=== PATIENT | male | born 1955 | race Caucasian/White ===

== ENCOUNTER 2018-08-04 13:07 | Emergency (ER) | payer OTHER, SELFPAY ==
[2018-08-04 13:09] VITALS: BP 136/77; PULSE 64; RESP 18; TEMP 36.3; O2SAT 100
--- NOTE | 2018-08-04 13:18 | DI.RAD_ITS ---
SYMPTOM/DIAGNOSIS: SAW INJURY, PAIN RIGHT THUMB: Soft tissue trauma is noted over the tip of the thumb. There is no evidence of a fracture or dislocation.
--- NOTE | 2018-08-04 13:18 | W.ED.GENAD ---
Discharge Plan Disposition Patient Disposition: HOME Condition: Stable Discharge Details Chief Complaint: Laceration Clinical Impression: Laceration of thumb, right Primary Care Provider: Zachary Hernandez ED Provider: Kendall Quintero Home Meds and New Rx's Prescriptions: New cephalexin 500 mg capsule 500 mg PO TID 5 Days Qty: 15 RF: 0 No Action glucosamine sulfate 2KCl 1,000 MG tablet 1,000 mg PO DAILY RF: 0 trazodone 50 mg tablet 50 mg PO HS Qty: 90 RF: 4 naproxen sodium [Aleve] 220 mg tablet 220 mg PO DAILY PRNRF: 0 Discharge Instructions Instructions: Laceration (ED) Additional Instructions: Return in 7 to 10 days for suture removal. Take antibiotics as prescribed. Return sooner if you develop fever, redness, discharge from the wound. Once daily soap and water cleanse, pat dry, replace dressing. Medical Decision Making 63-year-old male presents with right thumb distal laceration from a skill saw. Anesthetized, irrigated, referred for x-ray to rule out underlying bony injury. The x-ray is unremarkable. Tetanus status is up-to-date 2015. Wound examined in a bloodless field without evidence of foreign body. 5 4-0 Nylon sutures used to close the wound. I will place him on a brief course of antibiotics to ensure no development of infection. HPI General Mode of arrival: ambulatory. Date/Time Provider Initiated Documentation: 08/04/18 13:10. Limitations to Documentation: no limitations. Information obtained by: patient. History of Present Illness 63 year old M presents to the emergency department with the chief complaint of Right thumb laceration from Skil saw, described as moderate, Quality is described as dull and constant, and is localized to the right and upper extremity. Patient reports no radiation. Patient started experiencing this hour(s) and it has been constant. No relieving factors improve symptom(s), No exacerbating factors reported . Patient notes no other symptoms. and other (No numbness or weakness); denies weakness. Related Data Home Medications Medication Instructions Recorded Confirmed glucosamine sulfate 2KCl 1,000 mg PO DAILY 07/06/12 08/04/18 trazodone 50 mg tablet 50 mg PO HS #90 tab 02/16/18 08/04/18 naproxen sodium 220 mg tablet 220 mg PO DAILY PRN tab 03/24/18 08/04/18 cephalexin 500 mg PO TID 5 Days #15 cap 08/04/18 Previous Rx's Medication Instructions Recorded trazodone 50 mg tablet 50 mg PO HS #90 tab 02/16/18 cephalexin 500 mg PO TID 5 Days #15 cap 08/04/18 Allergies Allergy/AdvReac Type Severity Reaction Status Date / Time codeine AdvReac Mild GI UPSET Verified 08/04/18 13:11 General Stated Complaint: Laceration MAME: 4 Review of Systems Review of Systems 4 systems reviewed and otherwise - [facility] Surgical History Appendectomy Colonoscopy - MAC (~04/2010) PROCEDURES Tonsillectomy Family History Mother Essential hypertension Hyperlipidemia Father Heart disease Maternal Grandfather Heart disease Maternal Grandmother Diabetes Neoplasm Paternal Grandfather Heart disease Paternal Grandmother No problems noted. Social History Smoking/Tobacco Use Status: Former Tobacco Use Quit Date: 02/22/77 Alcohol Intake: current Alcohol Intake frequency: holidays/special occasions only Alcohol type: beer Substance use type: does not use Household members: other Details: 2 current occupation: [employer] Pets and animals: Yes Pets and animals: cat(s) Duration: 45-60 minutes/day Frequency: does not exercise Joceline/Jainism: Mandaen Special joceline needs: No Do you feel safe at home: Yes Do you feel safe in your relationship?: Yes Exam Narrative Exam Narrative: GEN: awake, alert, oriented 3. Pleasant, well groomed, interactive. HEAD: Normocephalic, atraumatic ENT: Mucous membranes moist, oropharynx unremarkable, External ear exam unremarkable EYES: PERRL, EOMI NECK: Full ROM, no ELIZABETH, no menigismus EXT: Full ROM, the right thumb distal portion has a vertically oriented 2 cm incision that goes just to the distal nail. Sensation is intact with a two-point discrimination of approximately 1 cm. Neuro: Grossly normal neurologic exam, conversant, interactive. Psych: Speech fluent, thoughts congruent, affect normal Course Vital Signs Temperature 36.3 C L 08/04/18 13:09 Pulse 64 08/04/18 13:09 Respiratory Rate 18 08/04/18 13:09 Blood Pressure 136/77 08/04/18 13:09 Pulse Oximetry 100 08/04/18 13:09 Temperature 36.3 C L 08/04/18 13:09 Temperature Source Skin 08/04/18 13:09 Pulse 64 08/04/18 13:09 Respiratory Rate 18 08/04/18 13:09 Respiratory Effort 08/04/18 13:12 Blood Pressure 136/77 08/04/18 13:09 Pulse Oximetry 100 08/04/18 13:09 Oxygen Delivery Method Room Air 08/04/18 13:09 Oxygen Flow Rate 0 08/04/18 13:09 Pain Level 5 08/04/18 13:09 Procedures Laceration Laceration 1: Side (If applicable): right Size (cm): 2 Description: linear and irregular Local Anesthetic: Lidocaine 1% Amount of anesthesia used (mL): 1 Skin layer closed with: nylon Size (cm): 4-0 Number of sutures: 5 Technique: simple, interrupted
--- NOTE | 2018-08-04 13:21 | ED.GENADUL_ITS ---
Discharge Plan Disposition Patient Disposition: HOME Condition: Stable Discharge Details Chief Complaint: Laceration Clinical Impression: Laceration of thumb, right Primary Care Provider: Zachary Hernandez ED Provider: Kendall Quintero Home Meds and New Rx's Prescriptions: New cephalexin 500 mg capsule 500 mg PO TID 5 Days Qty: 15 RF: 0 No Action glucosamine sulfate 2KCl 1,000 MG tablet 1,000 mg PO DAILY RF: 0 trazodone 50 mg tablet 50 mg PO HS Qty: 90 RF: 4 naproxen sodium [Aleve] 220 mg tablet 220 mg PO DAILY PRNRF: 0 Discharge Instructions Instructions: Laceration (ED) Additional Instructions: Return in 7 to 10 days for suture removal. Take antibiotics as prescribed. Return sooner if you develop fever, redness, discharge from the wound. Once daily soap and water cleanse, pat dry, replace dressing. Medical Decision Making 63-year-old male presents with right thumb distal laceration from a skill saw. Anesthetized, irrigated, referred for x-ray to rule out underlying bony injury. The x-ray is unremarkable. Tetanus status is up-to-date 2015. Wound examined in a bloodless field without evidence of foreign body. 5 4-0 Nylon sutures used to close the wound. I will place him on a brief course of antibiotics to ensure no development of infection. HPI General Mode of arrival: ambulatory . Date/Time Provider Initiated Documentation: 08/04/18 13:10 . Limitations to Documentation: no limitations . Information obtained by: patient . History of Present Illness 63 year old M presents to the emergency department with the chief complaint of Right thumb laceration from Skil saw, described as moderate, Quality is described as dull and constant, and is localized to the right and upper extremity. Patient reports no radiation. Patient started experiencing this hour(s) and it has been constant. No relieving factors improve symptom(s), No exacerbating factors reported . Patient notes no other symptoms. and other (No numbness or weakness); denies weakness. Related Data Home Medications Medication Instructions Recorded Confirmed glucosamine sulfate 2KCl 1,000 mg PO DAILY 07/06/12 08/04/18 trazodone 50 mg tablet 50 mg PO HS #90 tab 02/16/18 08/04/18 naproxen sodium 220 mg tablet 220 mg PO DAILY PRN tab 03/24/18 08/04/18 cephalexin 500 mg PO TID 5 Days #15 cap 08/04/18 Previous Rx's Medication Instructions Recorded trazodone 50 mg tablet 50 mg PO HS #90 tab 02/16/18 cephalexin 500 mg PO TID 5 Days #15 cap 08/04/18 Allergies Allergy/AdvReac Type Severity Reaction Status Date / Time codeine AdvReac Mild GI UPSET Verified 08/04/18 13:11 General Stated Complaint: Laceration MAME: 4 Review of Systems Review of Systems 4 systems reviewed and otherwise - [facility] Surgical History Appendectomy Colonoscopy - MAC (~04/2010) PROCEDURES Tonsillectomy Family History Mother Essential hypertension Hyperlipidemia Father Heart disease Maternal Grandfather Heart disease Maternal Grandmother Diabetes Neoplasm Paternal Grandfather Heart disease Paternal Grandmother No problems noted. Social History Smoking/Tobacco Use Status: Former Tobacco Use Quit Date: 02/22/77 Alcohol Intake: current Alcohol Intake frequency: holidays/special occasions only Alcohol type: beer Substance use type: does not use Household members: other Details: 2 current occupation: [employer] Pets and animals: Yes Pets and animals: cat(s) Duration: 45-60 minutes/day Frequency: does not exercise Joceline/Anabaptist: Pentecostal Special joceline needs: No Do you feel safe at home: Yes Do you feel safe in your relationship?: Yes Exam Narrative Exam Narrative: GEN: awake, alert, oriented 3. Pleasant, well groomed, interactive. HEAD: Normocephalic, atraumatic ENT: Mucous membranes moist, oropharynx unremarkable, External ear exam unremarkable EYES: PERRL, EOMI NECK: Full ROM, no ELIZABETH, no menigismus EXT: Full ROM, the right thumb distal portion has a vertically oriented 2 cm incision that goes just to the distal nail. Sensation is intact with a two- point discrimination of approximately 1 cm. Neuro: Grossly normal neurologic exam, conversant, interactive. Psych: Speech fluent, thoughts congruent, affect normal Course Vital Signs Temperature 36.3 C L 08/04/18 13:09 Pulse 64 08/04/18 13:09 Respiratory Rate 18 08/04/18 13:09 Blood Pressure 136/77 08/04/18 13:09 Pulse Oximetry 100 08/04/18 13:09 Temperature 36.3 C L 08/04/18 13:09 Temperature Source Skin 08/04/18 13:09 Pulse 64 08/04/18 13:09 Respiratory Rate 18 08/04/18 13:09 Respiratory Effort 08/04/18 13:12 Blood Pressure 136/77 08/04/18 13:09 Pulse Oximetry 100 08/04/18 13:09 Oxygen Delivery Method Room Air 08/04/18 13:09 Oxygen Flow Rate 0 08/04/18 13:09 Pain Level 5 08/04/18 13:09 Procedures Laceration Laceration 1: Side (If applicable): right Size (cm): 2 Description: linear and irregular Local Anesthetic: Lidocaine 1% Amount of anesthesia used (mL): 1 Skin layer closed with: nylon Size (cm): 4-0 Number of sutures: 5 Technique: simple, interrupted
== END 2018-08-04 14:00 | disposition home or self-care (01) ==
PROVIDERS: Emergency Provider Emergency Medicine; PCP Emergency Medicine
DX: S61.011A Laceration without foreign body of right thumb without damage to nail, initial encounter (principal); W31.2XXA Contact with powered woodworking and forming machines, initial encounter
CPT/HCPCS: 12001; 99283; 73140; 99282

== ENCOUNTER 2019-01-30 09:09 | Outpatient (CLI) | payer OTHER, SELFPAY ==
[2019-02-01 11:30] LABS: PSA, Screening 1.4 ng/mL (0.0-4.5)
== END 2019-01-30 09:29 ==
PROVIDERS: PCP Emergency Medicine; Visit Provider Emergency Medicine
DX: Z12.5 Encounter for screening for malignant neoplasm of prostate (principal)
CPT/HCPCS: 36415; 84153

== ENCOUNTER → 2020-01-11 01:18 | Outpatient (CLI) | payer OTHER, SELFPAY ==
--- NOTE | 2020-01-11 09:00 | ETT_ITS ---
APPROVED REPORT Exam: Exercise Treadmill Patient Location: Out-Patient Room/Bed: Stress Nurse: Hansa Barba RN BMI: 29.53 Baseline Rhythm: Sinus Rhythm Comment: mild ST elevation noted in leads II, III, aVF, V2, V3, V4, V5, V6 Indications: Episode of sternal chest pain. Medical History Medical History: GERD. Insomnia. Cardiac Medications: None. , Allergies: Codeine. Cardiac Risk Factors: FHX of CAD, Smoking (former) Previous Cardiac Procedures: None. Pretest Chest Pain Characteristics: No chest pain Exercise History: Indeterminate Physical Disabilities: None. Lung Sounds: Clear to auscultation Heart Sounds: Regular Stress Test Details Test: Exercise stress testing was performed using a Erick protocol. Rest Stress HR Resting HR Supine: 74 bpm Max Heart Rate (APMHR): 156 bpm Resting HR Standin bpm Target HR (85% APMHR): 132 bpm Max HR Achieved: 156 bpm % of APMHR: 100 Recovery HR: 86 bpm HR response to stress: Normal HR response to stress BP Resting BP Supine: 126/70 mmHg Resting BP Standin/72 mmHg Max BP: 148/72 mmHg Recovery BP: 130/70 mmHg BP response to stress: Normal blood pressure response to stress. ECG Resting ECG: Sinus Rhythm Ectopy: None. Comment: mild ST elevation noted in leads II, III, aVF, V2, V3, V4, V5, V6 Stress ECG: Sinus Tachycardia ST Change: ST segment more isoelectric during exercise. Arrhythmia: None. Recovery ECG: Sinus Rhythm Recovery ST Change: No significant ST segment changes noted. Recovery ST Deviation: 0 mm Recovery Arrhythmia: None. Clinical Reason for Termination: Equipment malfunction. Stress Symptoms: General Fatigue Exercise duration: 12 min26 sec Highest Stage Reached: Stage 5: 5.0 mph at 18% grade. Exercise capacity: 13.77 METs Stress ECG Conclusion 1. The resting electrocardiogram was normal 2. Patient exercised on the Erick protocol and completed a workload of 13.77 METS. There were no sym ptoms to suggest angina 3. Normal heart rate and blood pressure response to exercise. The patient achieved 100% of predicted heart rate for age 4. Echocardiographically there was no evidence of myocardial ischemia 5. There were no significant dysrhythmias 6. Jordan treadmill score is 12, low risk Stress Test Summary STAGE Time (mins) Speed (mph) Grade (%) HR BP SYMPTOMS METS Supine 74 120/70 Standing 73 120/72 1 3 1.7 10 100 126/68 4.6 2 6 2.5 12 115 130/70 7 3 9 3.4 14 135 138/66 10.2 4 12 4.2 16 152 12.9 3 min recovery 89 148/72 6 min recovery 86 130/70 Equipment failure occurred during exercise. We were unable to continue to monitor HR and rhythm and b ecause of this the RN decided to terminate the study. Rhythm detection was returned 2 minutes after c essation of exercise. Patient was asymptomatic throughout exercise and recovery period.
== END ==
PROVIDERS: PCP Emergency Medicine; Visit Provider Emergency Medicine
DX: R07.9 Chest pain, unspecified (principal); Z82.49 Family history of ischemic heart disease and other diseases of the circulatory system; Z87.891 Personal history of nicotine dependence; Z53.8 Procedure and treatment not carried out for other reasons
CPT/HCPCS: 93017

== ENCOUNTER 2020-04-17 09:14 | Outpatient (CLI) | payer MEDICARE, SELFPAY ==
[2020-04-18 11:32] LABS: COVID-19 RT-PCR UVMMC Result Negative (Negative)
== END 2020-04-17 09:15 | disposition home or self-care (01) ==
LOC: LBO 09:14
PROVIDERS: PCP Emergency Medicine; Visit Provider Emergency Medicine
DX: Z20.822 Contact with and (suspected) exposure to COVID-19 (principal)
CPT/HCPCS: U0003

== ENCOUNTER 2020-08-07 13:13 | Emergency (ER) | payer OTHER, SELFPAY ==
[2020-08-07 13:20] VITALS: BP 127/69; PULSE 76; RESP 15; TEMP 36.8; O2SAT 96
--- NOTE | 2020-08-07 13:37 | ED.GENADUL_ITS ---
Discharge Plan Disposition Patient Disposition: HOME Condition: Stable Discharge Details Clinical Impression: Laceration of lip, Laceration of right thumb Primary Care Provider: Zachary Hernandez ED Provider: Ella Duckworth Home Meds and New Rx's Prescriptions: No Action clotrimazole [Lotrimin AF (clotrimazole)] 1 % cream 1 applic topical BID Qty: 28 RF: 0 hydrocortisone acetate [Anusol-HC] 25 mg suppository 25 mg MD DAILY Qty: 12 RF: 0 glucosamine sulfate 2KCl 1,000 MG tablet 1,000 mg PO DAILY RF: 0 naproxen sodium [Aleve] 220 mg tablet 220 mg PO DAILY PRNRF: 0 trazodone 50 mg tablet 50 mg PO HS Qty: 90 RF: 4 tamsulosin [Flomax] 0.4 mg capsule 0.4 mg PO DAILY Qty: 30 RF: 0 Discharge Instructions Instructions: Laceration (ED) Additional Instructions: Have sutures removed in 7 to 10 days on your thumb. You may come back here to have the sutures removed if you wish. 1 absorbable suture placed to lower lip. The lip should heal up in approximately 5 to 7 days. Please return to the ED sooner if any signs of infection increased redness, swelling, drainage or any concerns. The numbing medicine will wear off in 1 to 2 hours. Please take Tylenol or ibuprofen every 4-6 hours as needed for pain and swelling. Please keep the thumb laceration covered while outside or working. Allow to air dry at least 2 hours a day. After 12 to 24 hours you may wash under running soap and water. No soaking. Stand Alone Forms: Work Release Referrals: Zachary Hernandez, [Primary Care Provider] - Medical Decision Making 65-year-old male presents to the ER with chief complaint of lower lip laceration and right thumb laceration after being hit with a 2 x 4 while at work. He denies any loss of consciousness no neck pain. Bleeding is controlled upon initial exam patient is alert and oriented. Denies any other injuries no chest pain abdominal pain. Last tetanus shot was in 2016 he has a past medical history of depression anxiety BPH. No treatment was provided prior to arrival. 1413: Wounds infiltrated with 1% lidocaine with epi patient tolerated well, anesthesia achieved Wounds irrigated with sterile water and 2% chlorhexidine surgical scrub. 1530: Wound area irrigated with sterile water, chlorhexidine scrub, laceration repaired to lip with 5-0 Vicryl absorbable suture as noted in procedure note above. Thumb laceration was repaired with 4-0 nylon suture #5 as noted in procedure note above. Wound was well approximated. Patient tolerated well. Discussed home care and strict return instructions verbalized understanding. HPI General Mode of arrival: ambulatory . Date/Time Provider Initiated Documentation: 08/07/20 13:30 . Limitations to Documentation: no limitations . Information obtained by: patient . HPI Narrative: 65-year-old male presents to the ER with chief complaint of lower lip laceration and right thumb laceration after being hit with a 2 x 4 while at work. He denies any loss of consciousness no neck pain. Bleeding is controlled upon initial exam patient is alert and oriented. Denies any other injuries no chest pain abdominal pain. Last tetanus shot was in 2015 he has a past medical history of depression anxiety BPH. No treatment was provided prior to arrival. Related Data Home Medications Medication Instructions Recorded Confirmed glucosamine sulfate 2KCl 1,000 mg PO DAILY 07/06/12 08/07/20 naproxen sodium 220 mg tablet 220 mg PO DAILY PRN tab 03/24/18 08/07/20 clotrimazole 1 % topical cream 1 applic TOPICAL BID #28 g 12/22/19 08/07/20 hydrocortisone acetate 25 mg 25 mg MD DAILY #12 ea 12/22/19 08/07/20 rectal suppository trazodone 50 mg tablet 50 mg PO HS #90 tab 12/29/19 08/07/20 tamsulosin 0.4 mg capsule 0.4 mg PO DAILY #30 cap 04/10/20 08/07/20 Previous Rx's Medication Instructions Recorded clotrimazole 1 % topical cream 1 applic TOPICAL BID #28 g 12/22/19 hydrocortisone acetate 25 mg 25 mg MD DAILY #12 ea 12/22/19 rectal suppository trazodone 50 mg tablet 50 mg PO HS #90 tab 12/29/19 tamsulosin 0.4 mg capsule 0.4 mg PO DAILY #30 cap 04/10/20 Allergies Allergy/AdvReac Type Severity Reaction Status Date / Time codeine AdvReac Mild GI UPSET Verified 08/07/20 13:17 General Stated Complaint: Laceration MAME: 3 Review of Systems Narrative: Constitutional: Negative for weight loss, alert and oriented, well groomed, normal body habitus, appears comfortable. HEENT: Denies headaches, blurry vision, sore throat, trouble swallowing. Patient head injury, lower lip laceration, abrasion noted to the bridge of nose some mild swelling, denies episode Chest: Denies chest pain, palpitations, irregular rhythm, hypertension. Respiratory: Denies Shortness of breath, cough, hemoptysis. GI: Denies abdominal pain, nausea, vomiting, diarrhea, constipation. : Denies dysuria, hematuria, flank pain, rectal bleeding. Neuro: Denies dizziness, blurry vision, weakness, syncope, headache or facial numbness. Denies loss of conscious Extremity: Laceration noted to dorsum right thumb 3 and half centimeter L-shaped Hematologic: Denies easy bruising, intolerance to heat or cold, hair loss. [facility] Medical History Chest pain Rash Surgical History Appendectomy Colonoscopy - MAC (~04/2010) PROCEDURES Negative Holter 2006 Tonsillectomy Family History Mother Essential hypertension Hyperlipidemia Father Heart disease Maternal Grandfather Heart disease Maternal Grandmother Diabetes Neoplasm Paternal Grandfather Heart disease Paternal Grandmother No problems noted. Social History Smoking/Tobacco Use Status: Former Tobacco Use Quit Date: 02/22/77 Smoking risk assessment performed?: Yes Alcohol Intake: current Alcohol Intake frequency: holidays/special occasions only Alcohol type: beer Substance use type: does not use Household members: other Details: 2 current occupation: [employer] Pets and animals: Yes Pets and animals: cat(s) Duration: 45-60 minutes/day Frequency: does not exercise Joceline/Jainism: Mandaeism Special joceline needs: No Do you feel safe at home: Yes Do you feel safe in your relationship?: Yes Exam Narrative Exam Narrative: Constitutional: Alert and oriented x3. Appears stated age. Normal body habitus. Head: Normocephalic, Eyes: Pupils PERRLA, Red reflex noted, EOM's intact. Eyelids symmetrical without lesions, discharge, or swelling. ENT: Bilateral TM's WNL, External ear normal to inspection, no mastoid TTP, swelling, or erythema, abrasion noted to the bridge of nose with some mild swelling, dried blood noted in the right nare no active normal dentition, teeth intact posterior pharynx WNL, no exudate. Chest: RRR, Normal S1, S2, distal pulses intact. Resp: Lungs clear to auscultation bilaterally, no wheezes, rales, or rhonchi. Musculoskeletal: Normal gait, 5/5 strength to all four extremities. Laceration noted to the dorsum of the right thumb approximately 3-1/2 cm bleeding control led that is L-shaped Skin: Capillary refill less than 2 sec. Neurologic: Cranial nerves II-XII intact. Alert and oriented x 3. DTR's intact. Hematologic/Lymphatic: No ecchymosis, no lymphadenopathy. [facility] Head images: 1. Partial-thickness laceration to the lower lip does not cross the vermilion border. There is ecchymosis noted to the inner lip, is not through and through. Extrem Hand/finger images: 1. L-shaped laceration to the dorsum of the right thumb there is a small flap full range of motion sensation intact distally Course Vital Signs Vital signs: Vital Signs Temperature 36.8 C 08/07/20 13:20 Pulse 76 08/07/20 13:20 Respiratory Rate 15 08/07/20 13:20 Blood Pressure 127/69 08/07/20 13:20 Pulse Oximetry 96 08/07/20 13:20 Temperature 36.8 C 08/07/20 13:20 Temperature Source Temporal Artery Scan 08/07/20 13:20 Pulse 76 08/07/20 13:20 Respiratory Rate 15 08/07/20 13:20 Respiratory Effort Non-Labored 08/07/20 13:24 Blood Pressure 127/69 08/07/20 13:20 Blood Pressure Position Supine 08/07/20 13:20 Pulse Oximetry 96 08/07/20 13:20 Oxygen Delivery Method Room Air 08/07/20 13:20 Oxygen Flow Rate 0 08/07/20 13:20 Pain Level 3 08/07/20 13:20 Procedures Laceration Laceration 1: Site: lip (Mid-lower) Size (cm): 0.8 Description: irregular and involves deejay border (Does not involve deejay border) Depth: simple, single layer Local Anesthetic: Lidocaine 1% and with Epi Amount of anesthesia used (mL): 0.5 Pre-repair: wound explored, irrigated extensively and deep structures intact Skin layer closed with: vicryl Size (cm): 5-0 Number of sutures: 1 Technique: simple, interrupted Laceration 2: Site: hand (thumb) Side (If applicable): right Size (cm): 3.5 Description: linear and flap Local Anesthetic: Lidocaine 1% and with Epi Amount of anesthesia used (mL): 2.5 Pre-repair: wound explored, irrigated extensively and deep structures intact Skin layer closed with: nylon Size (cm): 4-0 Number of sutures: 5 Technique: simple, interrupted
[2020-08-07] MEDS: Acetaminophen 325 MG TAB 650 MG PO (15:30)
== END 2020-08-07 15:47 | disposition home or self-care (01) ==
PROVIDERS: Emergency Provider Registered Nurse Emergency; PCP Emergency Medicine
DX: S61.011A Laceration without foreign body of right thumb without damage to nail, initial encounter (principal); S01.511A Laceration without foreign body of lip, initial encounter; W22.8XXA Striking against or struck by other objects, initial encounter; Y99.0 Civilian activity done for income or pay
CPT/HCPCS: 12001; 12011

== ENCOUNTER → 2021-01-10 08:30 | Outpatient (BNVA) | payer MEDICARE, SELFPAY | PROVIDERS: PCP Emergency Medicine; Referring Provider Emergency Medicine; Visit Provider Physical Therapy Assistant | DX: Z12.11 Encounter for screening for malignant neoplasm of colon (principal); Z20.822 Contact with and (suspected) exposure to COVID-19 ==

== ENCOUNTER 2021-01-29 01:54 | Outpatient (CLI) | payer MEDICARE, SELFPAY ==
[2021-01-29 11:32] LABS: Source Nasal/Nares
[2021-01-29 13:50] LABS: COVID-19 PCR Negative (Negative)
== END 2021-01-29 01:55 | disposition home or self-care (01) ==
LOC: LBO 01:54
PROVIDERS: PCP Emergency Medicine; Visit Provider Surgery
DX: Z20.822 Contact with and (suspected) exposure to COVID-19 (principal)
CPT/HCPCS: 87635

== ENCOUNTER 2021-01-31 07:13 | Day surgery (SDC) | payer MEDICARE, SELFPAY ==
--- NOTE | 2021-01-30 11:26 | W.COLOREPORT ---
Colonoscopy Report Date of procedure: 01/31/21 Pre-op diagnosis general: Colon cancer screening Anesthesia Type: General:No Airway Estimated blood loss (mL): 1 Pathology: other Complications: None Disposition: same day Prep: Miralax/Dulcolax Retraction Time: 9 Procedure Description: After informed consent was obtained the patient was taken to the procedure room and placed in a left decubitous position. Monitors were applied and a time out was done. The patients name, date of , procedure, allergies to medications and metal in their body was reviewed. The patient was then sedated. Once sedated and comfortable a rectal exam was done. External exam was normal. Internal exam revealed a normal sphincter tone and no palpable masses. The scope was then introduced and retrofelexed. No internal hemorrhoids were identified. The scope was then advanced to the cecum without difficulty. The TI and appendiceal orifice were identified. The prep was excellent excellent.. The scope was then slowly retracted over 9 minutes back into the rectum. There was a 5 mm flat polyp that was removed at 30 cm with a cold forcep. He has no diverticuli. The scope was removed and the patient was woken up and taken back to Same day surgery in stable condition. The patient tolerated the procedure well and there were no immediate complications. Follow up: The patient should follow up in repeat in 7 years time years unless they develop changes in bowel habits or other new gastrointestinal complaints.
[2021-01-31 07:27] VITALS: BP 133/78; PULSE 82; RESP 16; TEMP 36.4; O2SAT 98
[2021-01-31] MEDS: Lactated Ringers 1,000 ML 80 ML IV (07:46)
--- NOTE | 2021-01-31 08:14 | ANES.PREOP_ITS ---
General Info Date of Service Date Performed: 01/31/21 Height: 5 ft 10 in Weight: 88.5 kg Body Mass Index (BMI): 28.0 Surgical Procedure: Operation Date: 01/31/21 08:20 Proposed Procedures Side Surgeon lora Steel, DO Meds Allergies and Home Medications Allergies Allergy/AdvReac Type Severity Reaction Status Date / Time codeine AdvReac Mild GI UPSET Verified 01/29/21 14:38 Home Medication Medication Instructions Recorded glucosamine sulfate 2KCl 1,000 mg PO DAILY 07/06/12 clotrimazole 1 % topical cream 1 applic TOPICAL BID #28 g 11/12/20 tamsulosin 0.4 mg capsule 0.4 mg PO DAILY #30 cap 11/12/20 trazodone 50 mg tablet 50 mg PO HS #90 tab 11/12/20 triamcinolone acetonide 0.1 % 1 applic TOPICAL BID #30 g 12/09/20 topical cream Current Visit Medications: Current Medications Generic Name Dose Route Start Last Admin Trade Name Freq PRN Reason Stop Dose Admin Hyoscyamine Sulfate 0.125 mg 01/30/21 11:26 Hyoscyamine 0.125 Mg Sl/Oral/Chew SL DIRECTED PRN Ringer's Solution 1,000 mls @ 80 mls/hr 01/31/21 06:00 01/31/21 07:46 IV 03/01/21 23:59 80 mls/hr INFUSION ELEAZAR Administration IV Miscellaneous Supplies 1 each 01/31/21 06:00 Iv Access IV 03/01/21 23:59 DIRECTED ELEAZAR Sodium Chloride 0 ml 01/31/21 06:00 Normal Saline Flush 10 Ml Syr IV 03/01/21 23:59 PRN PRN Sodium Chloride 0 ml 01/31/21 06:00 Normal Saline 10 Ml Vial IJ 03/01/21 23:59 DIRECTED PRN Sterile Water 0 ml 01/31/21 06:00 Water,Injection,Sterile 10 Ml Vial IJ 03/01/21 23:59 DIRECTED PRN PFSH Active Problems Active Problems: Problem Status Onset Code Tinnitus of both ears H93.13 Sensorineural hearing loss, bilateral H90.3 Change in bowel habits R19.4 Laceration of lip S01.511A Laceration of right thumb S61.011A BPH associated with nocturia N40.1, R35.1 Rash R21 Chest pain R07.9 Status post appendectomy Z90.49 Status post tonsillectomy Z90.89 Reflex sympathetic dystrophy 05/16/12 G90.50 Occult blood in stools 09/21/08 R19.5 Insomnia G47.00 Impaired fasting glucose 01/21/90 R73.01 Disorder of prostate N42.9 Depressive disorder F32.9 Anxiety F41.9 Surgical History Surgical History Appendectomy Colonoscopy - MAC (~04/2010) PROCEDURES Negative Holter 2006 Tonsillectomy Tobacco Smoking/Tobacco Use Status: Former Tobacco Use Passive smoking exposure: No Alcohol Alcohol Intake: current Alcohol intake frequency: holidays/special occasions only Alcohol type: beer Substance Use Substance use type: does not use Vital Signs and Lab Results Vital Signs Most Recent Vital Signs in EMR: Most Recent Vital Signs Temp Pulse Resp BP Pulse Ox 36.4 C L 82 16 133/78 98 01/31/21 07:27 01/31/21 07:27 01/31/21 07:27 01/31/21 07:27 01/31/21 07:27 Lab Results Blood Type / Crossmatch: No Data to Display Complete Blood Count: No Data to Display Complete Metabolic Panel: No Data to Display Liver Function Panel: No Data to Display Coagulation Panel: No Data to Display Cardiac Panel: No Data to Display Arterial Blood Gas: No Data to Display Venous Blood Gas: No Data to Display Pancreas Panel: No Data to Display Thyroid Panel: No Data to Display Infectious Disease: Coronavirus (COVID-19)(PCR) Negative (Negative) 01/29/21 09:15 01/29/21 Coronavirus 2019 Source Nasal/Nares 01/29/21 09:15 01/29/21 Blood Cultures: No Data to Display Toxicology Panel: No Data to Display Imaging and Studies Imaging and Studies Study information below may be from another EMR and interpreted by another provider. Please see original notes in EMR for more complete details. EKG Summary: DATE/TIME OF SERVICE: 12/22/19 1603 : 1955PERFORMING LOCATION: [facility] APPROVED REPORT Exam: Resting ECG Patient Location: O HR:64 bpm ECG Measurements Heart Rate 64 AXIS ND 178 P 42 QRSd 96 QRS 12 QT 394 T30 QTc 406 Conclusion Sinus rhythm...normal P axis, V-rate 60- 99 Stress Test Summary: DATE/TIME OF SERVICE: 01/11/20 ADMITTING PROVIDER: STEFANO CARPIO MD Exam: Exercise Treadmill Indications: Episode of sternal chest pain. Stress Test Details Test: Exercise stress testing was performed using a Erick protocol. Anesthesia Assessment and Plan Anesthesia History Personal History: No History of Anesthesia Complications Family History: No Family History of Anesthesia Complications Exercise Tolerance Exercise Tolerance: Metabolic Equivalents>4 Pertinent Negatives Pertinent Negatives: No Symptoms of GERD and No Major Cardiovascular Symptoms or Complaints Cardiac & Pulmonary Exam Cardiac Exam: Normal S1/S2 Heart Sounds Pulmonary Exam: Clear Bilateral Breath Sounds Implantable Cardiac Device Does patient have a Pacemaker or an ICD?: No Airway Exam Known Difficult Airway: No Mallampati Class: 2 Mouth Opening: Normal (> 3cm) Thyromental Distance: Greater than 3 cm Neck Range of Motion: Full ROM Neck Circumference: Normal Teeth Condition: Normal Dentition ASA Classification ASA Score: ASA 2 Emergency Case?: No NPO Status NPO Status: NPO Clears >2 hours, Solids >8 hours Anesthesia Plan Resuscitation Status: Full Code Anesthesia Technique: General Anesthesia Airway Planned: Natural Airway Monitors Used: Standard Monitors
[2021-01-31 08:21] VITALS: BMI 28.0
--- NOTE | 2021-01-31 08:43 | BOWEL_PTH ---
PATIENT: Bob Godwin LOC: [facility] U#:[id number] AGE/SX: 65/M ROOM: RE01/31/[address]: Nay Steel : 1955 BED: DIS: 01/31/2021 SPEC #: [id number] RECD: 01/31/21 12:44 STATUS: PHILIP REQ #: [id number] JEAN: 01/31/21 08:[address]: Nay Steel DEPT: Surgical Specimen RECD BY: Arielle Martinez ENTERED: 01/31/21 12:45 SP TYPE: Bowel OTHR DR: Zachary Hernandez DO Tissues: 1 - BIOPSY BOWEL Procedures: GROSS AND MICRO LEVEL 4 Comments: [id number]
--- NOTE | 2021-01-31 08:49 | PDOC.DSDIS_ITS ---
Discharge Plan Disposition Patient Disposition: HOME Condition: Good Discharge Details Reason For Visit: colon scope Attending Provider: Nay Steel Primary Care Provider: Zachary Hernandez Home Meds and New Rx's Prescriptions: No Action clotrimazole [Lotrimin AF (clotrimazole)] 1 % cream 1 applic topical BID Qty: 28 RF: 3 trazodone 50 mg tablet 50 mg PO HS Qty: 90 RF: 4 tamsulosin [Flomax] 0.4 mg capsule 0.4 mg PO DAILY Qty: 30 RF: 0 glucosamine sulfate 2KCl 1,000 MG tablet 1,000 mg PO DAILY RF: 0 triamcinolone acetonide 0.1 % cream 1 applic topical BID Qty: 30 RF: 4 Discharge Instructions Additional Instructions: DSU Colonoscopy Post- Op Instructions Instructions for Everyone who is given Anesthesia: For your safety, please do the following for the next twenty-four (24) hours: *Do Not operate a motor vehicle (car, truck, motorcycle, etc.) *Do Not drink alcoholic beverages or use any recreational drugs for the first 24 hours or while taking pain medications. The medications in your body may have a reaction that can be dangerous. *Do Not make any important decisions or sign any important papers. Findings: X1 small colon polyp Follow up: My office will send a letter in 2 to 3 weeks time detailing what type of polyp it was and when we want you to repeat the colon asked 1. No lifting over 20 pounds or strenuous activity for the first 24 hours after your procedure. After 24 hours there are no restrictions on your activity but you may feel fatigued for a few days. 2. After you arrive home you may have a light meal and return to your normal diet as you can tolerate it without feeling sick to your stomach. 3. You may have a bloated, gaseous feeling in your belly (abdomen) after a colonoscopy. Passing gas and belching will help. Walking or lying down on your left side with your knees flexed may relieve the discomfort. Call the office at [phone] (Office) or [phone] (Hospital) right away if you notice any of the following: a.Vomiting of blood or ?coffee ground stools?. b.Rectal bleeding 1Tbsp, blood clots or continuous bleeding. c.Severe belly (abdominal) pain. d.A hard distended belly (abdomen) and an inability to pass gas. 4. Please don?t expect to have a normal BM (bowel movement) for 2-3 days after your procedure. 5. If there are questions regarding the findings of your procedure, please contact your doctor 6. If you are unable to contact your doctor with a problem, contact the hospital at [phone]. 7. Continue all your regular medications unless directed otherwise. I understand the above instructions and have no questions. Signature of Patient or Adult Escort Name of Responsible Adult Escort Signature of Nurse Date/Time Activity:: See above Diet:: See above Discharge Orders Discharge Orders: Discharge Order (Routine); Ordered 01/30/21 Ordered By: Nay Steel DS: Diagnosis Discharge Diagnosis (1) Colon polyp: Status: Acute
[2021-01-31 08:54] VITALS: BP 146/93; PULSE 79; RESP 20; TEMP 36.4; O2SAT 95
--- NOTE | 2021-01-31 09:17 | W.ANESPOSTOP ---
Postoperative Evaluation Date, Time and Location Date Performed: 01/31/21 Time Performed: 08:57 Patient Location: Day Surgery Unit Vital Signs Most Recent Imported Vital Signs: Most Recent Vital Signs Temp Pulse Resp BP Pulse Ox 36.4 C L 79 20 146/93 H 95 01/31/21 08:54 01/31/21 08:54 01/31/21 08:54 01/31/21 08:54 01/31/21 08:54 Pain Score Most Recent Pain Score: Most Recent Pain Score Pain Level 0 01/31/21 07:27 Assessment Mental Status: Arousable with meaningful communication Airway and Respiratory Function: Patent airway with normal (patient baseline) respiratory exam Cardiovascular Function: Hemodynamically Stable Hydration Status: Adequately Hydrated Nausea & Vomiting: No Nausea or Vomiting Pain: Pt. Denies Any Pain Peripheral Nerve Block: Patient did not receive a nerve block
[2021-01-31 09:25] VITALS: BP 140/90; PULSE 64; RESP 16; TEMP 36.4; O2SAT 97
== END 2021-01-31 09:50 | disposition home or self-care (01) ==
PROVIDERS: PCP Emergency Medicine; Visit Provider Surgery
PROC: 0DJD8ZZ Inspection of Lower Intestinal Tract, Via Natural or Artificial Opening Endoscopic (ICD-10-PCS; CPT 45378; principal; 2021-01-31 08:15)
DX: Z12.11 Encounter for screening for malignant neoplasm of colon (principal); D12.5 Benign neoplasm of sigmoid colon; R73.01 Impaired fasting glucose
CPT/HCPCS: 45380; 88305

== ENCOUNTER 2021-06-04 03:07 | Outpatient (CLI) | payer MEDICARE, SELFPAY ==
[2021-06-04 09:33] LABS: Calculated LDL 114 mg/dL (<100); Cholesterol 180 mg/dL (<200); HDL Cholesterol 53 mg/dL (40-60); Triglyceride 68 mg/dL (<150)
[2021-06-04 18:14] LABS: PSA, Screening 2.3 ng/mL (<=4.5)
== END 2021-06-04 03:08 | disposition home or self-care (01) ==
LOC: LBO 03:07
PROVIDERS: Emergency Medicine; PCP Family Medicine; Visit Provider Family Medicine
DX: R07.9 Chest pain, unspecified (principal); R35.1 Nocturia; N40.1 Benign prostatic hyperplasia with lower urinary tract symptoms; Z12.5 Encounter for screening for malignant neoplasm of prostate
CPT/HCPCS: 36415; 80061; 84153

== ENCOUNTER 2021-07-31 14:50 | Outpatient (CLI) | payer MEDICARE, SELFPAY | END 2021-07-31 14:51 | disposition home or self-care (01) | LOC: LBO 14:53 | PROVIDERS: PCP Family Medicine; Visit Provider Nurse Practitioner | DX: U07.1 COVID-19 (principal) | CPT/HCPCS: 36415; 82565 ==

== ENCOUNTER → 2022-01-13 13:17 | Outpatient (CLI) | payer MEDICARE, SELFPAY ==
--- NOTE | 2022-01-13 09:30 | DI.RAD_ITS ---
Exam(s) XR HIP LT COMPLETE AP PELVIS EXAM: XR HIP LT COMPLETE AP PELVIS CLINICAL HISTORY: left sided low back pain and groin radiation M54.50 LOW BACK PAIN. TECHNIQUE: 2D digital imaging was performed of the left hip. Three views were obtained. AP pelvis and lateral left hip views were obtained. FINDINGS: BONES: No acute fracture is present. No bony destructive lesion is seen. JOINTS: No dislocation present. There are stable very mild degenerative changes of the left hip. SOFT TISSUE: Normal. IMPRESSION: Stable mild degenerative changes of the left hip. DATA REPOSITORY: RADIATION DOSE DELIVERED:
--- NOTE | 2022-01-13 09:30 | DI.RAD_ITS ---
Exam(s) XR LUMBAR SPINE COMPLETE EXAM: XR LUMBAR SPINE COMPLETE CLINICAL HISTORY: left sided low back pain M54.50 LOW BACK PAIN. TECHNIQUE: 2D digital imaging was performed of the lumbar spine. Five images were obtained. AP, la teral, right oblique, left oblique and L5-S1 spot views were obtained. COMPARISON: No exams were available for comparison FINDINGS: BONES: No fracture or destructive lesion. There is partial sacralization of L5. No facet hypertrophy identified. Small endplate osteophytes are seen in the lower thoracic and upper lumbar spine. DISKS: There is disc space narrowing at T12-L1. ALIGNMENT: Lumbar spinal alignment is within normal limits. No spondylolysis or spondylolisthesis. SOFT TISSUE: Normal. IMPRESSION: Mild degenerative changes in the lumbar spine. DATA REPOSITORY: RADIATION DOSE DELIVERED:
== END ==
PROVIDERS: PCP Nurse Practitioner Family; Visit Provider Family Medicine
DX: M47.816 Spondylosis without myelopathy or radiculopathy, lumbar region (principal); M16.12 Unilateral primary osteoarthritis, left hip
CPT/HCPCS: 72110; 73502

== ENCOUNTER → 2022-11-02 00:37 | Outpatient (CLI) | payer MEDICARE, SELFPAY ==
--- NOTE | 2022-11-02 05:15 | ETT_ITS ---
APPROVED REPORT Exam: Exercise Treadmill Patient Location: Out-Patient Room/Bed: Stress Nurse: Kevin Palomo RN Ordering Provider:LAURA TRAVIS, Contact Number: [phone] BMI: 27.97 Baseline Rhythm: Sinus Rhythm Indications: Chest pain. Medical History Medical History: Anxiety, Depression, hx covid. Cardiac Medications: none Allergies: codiene Cardiac Risk Factors: Increased BMI, hx smoking. Family hx. Previous Cardiac Procedures: none Pretest Chest Pain Characteristics: No chest pain Exercise History: Indeterminate Physical Disabilities: none Lung Sounds: Clear to auscultation Heart Sounds: Regular Stress Test Details Test: Exercise stress testing was performed using a Erick protocol. Rest Stress HR Resting HR Supine: 67 bpm Max Heart Rate (APMHR): 153 bpm Resting HR Standin bpm Target HR (85% APMHR): 130 bpm Max HR Achieved: 145 bpm % of APMHR: 95 Recovery HR: 83 bpm HR response to stress: Normal HR response to stress BP Resting BP Supine: 112/72 mmHg Resting BP Standin/82 mmHg Max BP: 190/68 mmHg Recovery BP: 126/82 mmHg BP response to stress: Normal blood pressure response to stress. ECG Resting ECG: Sinus Rhythm Ectopy: none Stress ECG: Sinus Tachycardia ST Change: No significant ST segment changes noted Arrhythmia: None Recovery ECG: Sinus Rhythm Recovery ST Change: No significant ST segment changes noted Recovery Arrhythmia: None Clinical Reason for Termination: Target HR Achieved Stress Symptoms: General Fatigue Exercise duration: 8 min37 sec Highest Stage Reached: Stage 3: 3.4 mph at 14% grade. Exercise capacity: 10 METs Angina Score: None Jordan Treadmill Score: 8.3 Rate Pressure Product: [id number] Stress ECG Conclusion 1. Resting electrocardiogram is within normal limits 2. Patient exercised on the Erick protocol and completed a workload of 10 METS, stopping due to fatig ue 3. Normal heart rate and blood pressure response to exercise. The patient achieved 95% predicted hea rt rate for age 4. There was no electrocardiographic evidence of myocardial ischemia 5. There were no dysrhythmias Jordan Treadmill Score is 8.3 which is Low risk. Stress Test Summary STAGE Time (mins) Speed (mph) Grade (%) HR BP SpO2 SYMPTOMS METS Supine 67 112/72 98 none Standing 69 128/82 98 none 1 3 1.7 10 109 160/82 98 none 4.5 2 6 2.5 12 124 184/86 98 none 7 3 9 3.4 14 140 Fatigued. 10 1 min recovery 113 190/68 none 3 min recovery 85 140/78 none 6 min recovery 83 126/82 97 none
== END ==
PROVIDERS: PCP Nurse Practitioner Family; Visit Provider Nurse Practitioner Family
DX: R07.9 Chest pain, unspecified (principal)
CPT/HCPCS: 93016; 93018; 93017

== ENCOUNTER 2023-03-09 04:42 | Outpatient (CLI) | payer MEDICARE, SELFPAY ==
[2023-03-09 07:41] LABS: HCT 44.8 % (40.0-50.0); HGB 15.5 g/dL (13.5-17.5); MCH 31.5 pg (27.0-33.0); MCHC 34.6 % (32.0-36.0); MCV 91 fL (80-95); MPV 8.3 fL (8.0-11.0); Platelet Count 173 10^3/uL (130-400); RBC 4.92 10^6/uL (4.36-5.78); RDW 12.3 % (11.8-14.1); RDW-SD 40.9 fL; WBC 5.06 10^3/uL (4.4-10.8)
[2023-03-09 08:27] LABS: Anion Gap 7.5 mmol/L (3-11); BUN 19 mg/dL (7-18); CO2 29.5 mmol/L (21.0-32.0); CREATININE 1.1 mg/dL (0.70-1.30); Calcium 9.1 mg/dL (8.5-10.1); Chloride 105 mmol/L (98-107); Estimated GFR 73.58 (mL/min/1.73m2); Glucose 95 mg/dL (74-106); Potassium 4.3 mmol/L (3.5-5.1); Sodium 142 mmol/L (136-145); TSH (W/Ref FT4) 3.73 uIU/mL (0.36-3.74)
[2023-03-10 11:04] LABS: Lyme Ab w Rflx to Lyme Confirm Negative (Negative)
[2023-03-11 13:46] LABS: Anaplasma phagocytophilum Negative (Negative); B. miyamotoi PCR Negative (Negative); Babesia divergens/MO-1 Negative (Negative); Babesia duncani Negative (Negative); Babesia microti Negative (Negative); Ehrlichia chaffeensis Negative (Negative); Ehrlichia ewingii/canis Negative (Negative); Ehrlichia muris eauclairensis Negative (Negative)
== END 2023-03-09 04:43 | disposition home or self-care (01) ==
LOC: LBO 04:43
PROVIDERS: PCP Nurse Practitioner Family; Visit Provider Nurse Practitioner Family
DX: R53.83 Other fatigue (principal)
CPT/HCPCS: 36415; 80048; 84153; 85027; 87798; 84443; 86618

== ENCOUNTER → 2023-06-09 00:51 | Outpatient (CLI) | payer MEDICARE, SELFPAY ==
--- NOTE | 2023-06-09 12:27 | DI.RAD_ITS ---
Exam(s) XR ANKLE RT COMPLETE EXAM: XR ANKLE RT COMPLETE CLINICAL HISTORY: persistent and worsening pain, atraumatic,m25.571. TECHNIQUE: 2D digital imaging was performed. Three views. COMPARISON: CR RIGHT ANKLE COMPLETE from 03/27/2013 FINDINGS: BONES: No acute fracture is present. No bony destructive lesion is seen. Small heel spurs are noted . JOINTS: The ankle mortise is normally aligned. No significant joint space narrowing SOFT TISSUE: Normal. IMPRESSION: Small heel spurs. DATA REPOSITORY: RADIATION DOSE DELIVERED:
== END ==
PROVIDERS: PCP Nurse Practitioner Family; Visit Provider Nurse Practitioner Family
DX: M77.31 Calcaneal spur, right foot
CPT/HCPCS: 73610

== ENCOUNTER 2024-04-29 10:29 | Outpatient (REF) | payer MEDICARE, SELFPAY | END 2024-04-29 10:30 | disposition home or self-care (01) | LOC: LBN 10:29 | PROVIDERS: PCP Nurse Practitioner Family; Visit Provider Physician Assistant | DX: L72.9 Follicular cyst of the skin and subcutaneous tissue, unspecified (principal) | CPT/HCPCS: 87070; 87205 ==

== ENCOUNTER 2024-06-06 21:52 | Outpatient (REF) | payer MEDICARE, SELFPAY ==
[2024-06-07 18:46] LABS: PSA, Screening 3.8 ng/mL (<=4.5)
== END 2024-06-06 21:53 | disposition home or self-care (01) ==
LOC: LBN 21:52
PROVIDERS: PCP Nurse Practitioner Family; Visit Provider Nurse Practitioner Family
DX: N40.1 Benign prostatic hyperplasia with lower urinary tract symptoms (principal); R35.1 Nocturia; F41.9 Anxiety disorder, unspecified; F32.9 Major depressive disorder, single episode, unspecified
CPT/HCPCS: 84153

== ENCOUNTER 2024-12-05 02:11 | Outpatient (CLI) | payer MEDICARE, SELFPAY ==
--- NOTE | 2024-12-05 10:20 | DI.US_ITS ---
Exam(s) US SCROTUM EXAM: US SCROTUM CLINICAL HISTORY: right side, nontender SCROTAL MASS x 1 month,N50.89. TECHNIQUE: Scrotal ultrasound performed using grayscale, color-flow and spectral Doppler analysis. COMPARISON: No exams were available for comparison FINDINGS: RIGHT TESTICLE: 4.2 x 2.7 x 4.1 cm Echogenicity: Normal. Contour: Smooth. Mass: None seen. Microlithiasis: None. Hydrocele: Small, measured 2.7 x 1.2 x 2.9 cm Varicocele: None. Hernia: No peristalsing bowel loop identified. Epididymis: Normal. Scrotum: Normal. LEFT TESTICLE: 4.6 x 2.5 x 3.8 cm Echogenicity: Normal. Contour: Smooth. Mass: None seen. Microlithiasis: None. Hydrocele: Small, measured at 3.7 x 1.2 x 4.1 cm. Loculation. Varicocele: None. Hernia: No peristalsing bowel loop identified. Epididymis: Multiple cysts in the epididymal head, the largest measuring 1.5 cm in greatest dimension, cut corresponding to the palpable abnormality. Scrotum: Normal. DOPPLER: Color: Symmetric and uniform, no hyperemia. Duplex: Bilateral testicular arterial waveforms visualized. IMPRESSION: Normal appearing bilateral testicles. Left epididymal head cysts correspond to the palpable abnormality. Small bilateral hydroceles. DATA REPOSITORY:
== END 2024-12-05 02:31 ==
LOC: DI 02:11
PROVIDERS: PCP Nurse Practitioner Family; Visit Provider Nurse Practitioner Family
DX: N50.89 Other specified disorders of the male genital organs (principal)
CPT/HCPCS: 76870

== ENCOUNTER 2025-01-08 14:21 | Outpatient (REF) | payer MEDICARE, SELFPAY ==
[2025-01-09 22:52] LABS: Campylobacter PCR Negative (Negative); Shiga Toxin PCR Negative (Negative); Shigella/Enteroinvasive Ecoli Negative (Negative)
== END 2025-01-08 14:22 | disposition home or self-care (01) ==
LOC: LBN 14:21
PROVIDERS: PCP Nurse Practitioner Family; Visit Provider Nurse Practitioner Family
DX: R19.7 Diarrhea, unspecified (principal); R19.5 Other fecal abnormalities
CPT/HCPCS: 87505

== ENCOUNTER → 2025-01-09 10:22 | Outpatient (BNVA) | payer MEDICARE, SELFPAY | PROVIDERS: PCP Nurse Practitioner Family; Referring Provider Nurse Practitioner Family; Visit Provider Student in an Organized Health Care Education/Training Program | DX: R19.7 Diarrhea, unspecified (principal); R19.4 Change in bowel habit; R10.31 Right lower quadrant pain; R10.32 Left lower quadrant pain | CPT/HCPCS: 99213 ==